=== PATIENT | female | born 1980 | race Caucasian/White ===

== ENCOUNTER 2017-03-26 12:19 | Day surgery (SDC) | payer BC ==
[2017-03-26] MEDS ORDERED: NS 0.9% 1000 ML* 1,000 ML IV ONE ×2 (12:56→14:24)
[2017-03-26] MEDS ORDERED: Ondansetron INJ* 2 MG/ML VIAL IV ONE ×2 (12:56→15:08)
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
[2017-03-26] MEDS ORDERED: Morphine INJ* 4 MG/ML 1 ML SYRINGE IV ONE (13:07)
[2017-03-26 14:02] LABS: Hematocrit 42 % (35-47); Hemoglobin 14.1 g/dl (12.0-16.0); Mean Corpuscular HGB Conc 33 g/dl (31-36); Mean Corpuscular Hemoglobin 31 pg (27-31); Mean Corpuscular Volume 93 fL (80-97); Mean Platelet Volume 7 um3 (7.4-10.4); Red Blood Count 4.56 10^6/ul (4.0-5.4); Red Cell Distribution Width 13 % (10.5-15)
[2017-03-26 14:11] LABS: Add Diff/Slide Review? Slide Review Added; Comments Flag Yes
[2017-03-26] MEDS ORDERED: HYDROmorphone* 1 MG/ML 1 ML SYR IV SLOW PU ONE ×2 (15:00→15:21)
[2017-03-26] MEDS ORDERED: Metoclopramide IV* 5 MG/ML 2 ML VIAL IV ONE (15:21)
[2017-03-26 16:01] LABS: ALT 9 U/L (7-52); AST 14 U/L (13-39); Albumin 3.8 g/dL (3.2-5.2); Alkaline Phosphatase 27 U/L (34-104); Anion Gap 13 mmol/L (2-11); Blood Urea Nitrogen 6 mg/dL (6-24); C Reactive Protein 8.19 mg/L (< 5.00); CO2 Carbon Dioxide 15 mmol/L (22-32); Chloride 104 mmol/L (101-111); EGFR African American 144.7 (>60); EGFR Non-African American 112.5 (>60); Globulin 2.5 g/dL (2-4); Glucose 87 mg/dL (70-100); Lipase < 10 U/L (11.0-82.0); Magnesium 1.5 mg/dL (1.9-2.7); Potassium 3.6 mmol/L (3.5-5.0); Sodium 132 mmol/L (133-145); Total Protein 6.3 g/dL (6.4-8.9)
[2017-03-26] MEDS ORDERED: Iohexol 300* (CONTRAST) 10 ML SDV IV ONE (16:05)
--- NOTE | 2017-03-26 17:05 | RAD ---
CLINICAL HISTORY: Periumbilical pain with nausea and vomiting COMPARISON: None TECHNIQUE: Contrast enhanced CT examination of the abdomen and pelvis from the lung bases through the initial tuberosities. The patient received 68 mL Omnipaque 300 intravenously prior to imaging.The patient received oral contrast as well prior to imaging. FINDINGS: VISUALIZED LUNG BASES: The visualized lung bases are grossly clear. There is no pleural effusion. ABDOMEN AND PELVIS: The liver, spleen, pancreas and adrenal glands are grossly normal in appearance. The gallbladder is normal. The kidneys are normal in appearance without focal mass, calcification or signs of hydronephrosis. There are contrast has progressed as far as the base of the cecum. The small and large bowel are not distended. The appendix is mostly fluid-filled with a small amount of air in the distal tip measuring 11 mm in greatest diameter (coronal image 36 through 43). There is a mild amount of periappendiceal inflammatory change of the mesenteric fat. Questionable wall thickening of the terminal ileum is likely reactive in the presence of an inflamed and enlarged appearing appendix. There is no gross retroperitoneal or mesenteric lymphadenopathy. The pelvic viscera is normal in appearance. The abdominal aorta and iliac arteries are normal in course and diameter. There are no sinister bone lesions. IMPRESSION: In the correct clinical setting these CT findings are most consistent with acute appendicitis.
[2017-03-26 17:20] LABS: Urine Bacteria Absent (Absent); Urine Bilirubin Negative (Negative); Urine Glucose Negative (Negative); Urine Nitrite Negative (Negative)
[2017-03-26] MEDS ORDERED: Ondansetron INJ* 2 MG/ML VIAL ONE (19:12)
[2017-03-26] MEDS ORDERED: Propofol* 10 MG/ML 20 ML BTL IV PUSH ONE (19:12)
[2017-03-26] MEDS ORDERED: Dexamethasone IV* 4 MG/ML 1 ML (4 MG) ONE (19:12)
[2017-03-26] MEDS ORDERED: Lidocaine 2% PF * 5 ML VIAL ONE (19:12)
[2017-03-26] MEDS ORDERED: Ketorolac INJ* 30 MG/ML 1 ML VIAL ONE (19:12)
[2017-03-26] MEDS ORDERED: fentaNYL* 50 MCG/ML 2 ML VIAL (100 MCG VIAL) ONE (19:12)
[2017-03-26] MEDS ORDERED: Cisatracurium* 2 MG/ML MDV 5 ML ONE (19:13)
[2017-03-26] MEDS ORDERED: KETAMINE HCL* 50 MG/ML 10 ML VIAL ONE (19:13)
[2017-03-26] MEDS ORDERED: Midazolam* 1 MG/ML 5 ML VIAL (5 MG) ONE (19:13)
[2017-03-26] MEDS ORDERED: Bupivacaine 0.25% W/EPI* 50 ML VIAL ONE (19:17)
[2017-03-26] MEDS ORDERED: ceFOXitin 2 GM IVPREMIX* 2 GM/50 ML BAG ONE (19:20)
[2017-03-26] MEDS ORDERED: Glycopyrrolate IV* 0.2 MG/ML 1 ML VIAL ONE (20:21)
[2017-03-26] MEDS ORDERED: Neostigmine Methylsulfate* 2 MG/2 ML SYRINGE ONE (20:21)
[2017-03-26] MEDS ORDERED: Ondansetron INJ* 2 MG/ML VIAL IV PRN (20:52)
[2017-03-26] MEDS ORDERED: fentaNYL* 50 MCG/ML 2 ML VIAL (100 MCG VIAL) IV PRN (20:52)
[2017-03-26] MEDS ORDERED: oxyCODONE/Acetamin 5/325 MG* TAB PO PRN (20:52)
[2017-03-26 22:08] VITALS: BP 116/54
[2017-03-26] MEDS ORDERED: oxyCODONE/Acetamin 5/325 MG* TAB ONE (22:10)
--- NOTE | 2017-03-27 03:50 | HP ---
CC: Ino Peng MD HISTORY AND PHYSICAL: DATE OF ADMISSION: 03/26/17 CHIEF COMPLAINT: Abdominal pain. HISTORY OF PRESENT ILLNESS: The patient is a 36-year-old female, who was here in her usual state of health. She had upset stomach yesterday after learning that her dog had and had a lot of dist ress and gastric upset and then today had central abdominal pain, which she thought was somehow foll owon from the stress from 2 days ago, but then it kept getting more intense. This is now a little b it in the right lower quadrant. She has felt warm and feverish. No chills. No nausea. No vomitin g. No diarrhea. No blood in stool or urine. No accident injury or trauma. No antecedent illness. No Crohn's disease, colitis or the like. PAST MEDICAL HISTORY: Benign. No chronic medical illnesses. MEDICATIONS: control pill. ALLERGIES: No medical allergies. FAMILY HISTORY: Benign. No bleeding tendencies or anesthesia reactions. REVIEW OF SYSTEMS: Negative for any cardiac disease, chest pain, heart pain, angina pain. She is v tristen active physically and works out regularly. No dyspnea, bronchitis or emphysema. No hepatobilia ry disease. No renal disease, kidney stones, or urinary symptoms. No GI history. No neuromuscular or psych issues. She has had wisdom teeth out in the past and tolerated that well. No bleeding ten dencies or anesthesia reactions. PHYSICAL EXAMINATION GENERAL: She is a well-developed, well-nourished slender female consistent with stated age. VITAL SIGNS: Noted, temperature was 101.3. Color is good. She does not appear acutely ill. HEENT: Head and neck is unremarkable. There is no adenopathy. LUNGS: Clear bilaterally. HEART: Regular without any abnormal sounds. ABDOMEN: Soft, flat, tender in the right lower quadrant. No rebound tenderness. It is well localiz ed to the right lower quadrant. Bowel sounds are normal and no scars or hernias. EXTREMITIES: Well perfused and without edema. LABORATORY DATA: Reveal white blood count elevated at 21,000 with left shift and relatively normal electrolytes. Renal function is normal. Liver function is normal. HCG is negative. Urinalysis i s negative. CT scan shows a dilated appendix up to 11 mm with little edema in the wall and fluid fi lling the lumen. There is a little periappendiceal inflammatory change. No evidence of free air or abscess or perforation. IMPRESSION: A healthy 36-year-old female with signs and symptoms of early acute appendicitis. I discussed this at length with her and with her . We talked about the pros and cons of appe ndectomy. We talked about the data regarding nonoperative treatment of appendicitis and she would b e a potential candidate for it. She understands it would require being admitted to the hospital for intravenous antibiotics and that there would be a chance of failure of the antibiotics and need for appendectomy, but there is also a reasonable likelihood that she would respond to the antibiotics a nd not end up requiring surgery either. We talked about the pros and cons of these two approaches, the risks, recovery, recurrence rates, return to work and so forth. All of her questions have been answered and she would like to proceed with laparoscopic appendectomy and we will do so this evening when the operating room permits. [id number]/[facility] [place] #: [id number]
--- NOTE | 2017-03-27 16:19 | OP ---
AMENDED REPORT TO CORRECT ACCOUNT NUMBER - ESIGNED BEFORE ADJUSTMENT DATE OF OPERATION: 03/26/17 - SDS DATE OF : 78 SURGEON: Ino Peng MD REAL ESTATE APPRAISER: None. ANESTHESIOLOGIST: Dr. Caldera. ANESTHESIA: General anesthetic, local infiltration. PRE-OP DIAGNOSIS: Acute appendicitis. POST-OP DIAGNOSIS: Acute appendicitis. OPERATIVE PROCEDURE: Laparoscopic appendectomy. DESCRIPTION OF PROCEDURE: The patient was supine on the operative table. After adequate general anesthetic, compression stockings, Paco Hugger warmer, and intravenous antibiotics, the abdomen was prepped with antiseptic, draped in a sterile fashion. Local infiltrative anesthesia was administered. Small umbilical incision was created. Blunt port cannula was placed. Insufflation was carried out with carbon dioxide. Additional cannulae, 5 mm suprapubic and left lower quadrant placed with small stab wounds under direct vision. The right tube and ovary were examined and were normal. Terminal ileum was normal. Cecum was normal. The appendix was inflamed and injected and enlarged and had evidence of acute appendicitis. The cecum was verbalized towards the midline and the base of the appendix was lifted up. A [place] dissector was used to create a window next to the base of the appendix and a prakash load EndoGIA stapler was used to divide the base of the appendix at the cecum. Mesentery was divided with a shannon load of the stapler. The appendix was placed in a retrieval bag and brought out through the umbilical site. There was a small bleeder on the staple line that was cauterized, this was on the mesenteric staple line. Everything was in good condition. The area was swabbed out. Hemostasis was again confirmed. The cannulae were removed, pneumoperitoneum allowed to escape and umbilical fascia was closed with 0 Polysorb and skin with 5-0 Polysorb followed by Ster-Strips. She tolerated the procedure well, was awakened and brought to Recovery in good condition. No complications. No drains. Pathologic specimen is appendix. Sponge, instruments counts correct. Estimated blood loss less than 20 mL. [id number]/[facility] #: [id number] MTDD
== END 2017-03-26 19:11 | disposition short-term general hospital (02) ==
LOC: ED 12:19 → OR 19:11
PROVIDERS: ATTEND Surgery
DX: K35.80 Unspecified acute appendicitis (principal)
CPT/HCPCS: 36415; 74177; 80053; 81003; 81015; 83605; 83690; 83735; 84702; 85025; 86140; 87040; 88304; 96374; 96375; 99285; A9270-GY; C1776; J0694; J1100; J1170; J1885; J2250; J2270; J2405; J2543; J2704; J3010; Q9967

== ENCOUNTER 2019-08-18 13:33 | Emergency (ER) | payer SELFPAY ==
[2019-08-18] MEDS ORDERED: Raltegravir* 400 MG TAB PO ONE (14:00)
[2019-08-18] MEDS ORDERED: Tenofovir/Emtricitab 200/300 * TAB PO ONE (14:00)
[2019-08-18] MEDS ORDERED: Tetan/Diph/Pertus SYR(Tdap)* 0.5 ML SYR(BOOSTRIX) use SYR contains LATEX IM ONE (14:00)
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
[2019-08-18 14:21] LABS: ABS Eosinophils 0.1 10^3/ul (0-0.6); ABS Lymphocytes 2.5 10^3/ul (1.0-4.8); ABS Monocytes 0.4 10^3/ul (0-0.8); ABS Neutrophils 5.9 10^3/ul (1.5-7.7); Eosinophil % 0.8 %; Hematocrit 41 % (35-47); Hemoglobin 14.3 g/dL (12.0-16.0); Mean Corpuscular HGB Conc 35 g/dL (31-36); Mean Corpuscular Hemoglobin 32 pg (27-31); Mean Corpuscular Volume 91 fL (80-97); Mean Platelet Volume 6.6 fL (7.4-10.4); Platelet Count 314 10^3/uL (150-450); Red Blood Count 4.46 10^6 /uL (3.70-4.87); Red Cell Distribution Width 14 % (10-15)
[2019-08-18 14:38] LABS: Albumin 4.7 g/dL (3.2-5.2); Albumin/Globulin Ratio 1.7 (1-3); BUN/Creatinine Ratio 16.9 (8-20); Calcium 9.4 mg/dL (8.6-10.3); EGFR African American 110.9 (>60); EGFR Non-African American 91.6 (>60); Globulin 2.8 g/dL (2-4); Potassium 3.5 mmol/L (3.5-5.0); Total Bilirubin 0.6 mg/dL (0.2-1.0); Total Protein 7.5 g/dL (6.4-8.9)
[2019-08-18 15:02] VITALS: BP 143/97
[2019-08-18 15:16] LABS: Hepatitis B Surface Antigen Nonreactive (Nonreactive)
[2019-08-18 15:33] LABS: Hepatitis B Surface Ab Immune (Immune); Hepatitis C Antibody Negative (Negative)
== END 2019-08-18 14:40 | disposition home or self-care (01) ==
LOC: ED 13:33
DX: Z77.21 Contact with and (suspected) exposure to potentially hazardous body fluids (principal); S61.032A Puncture wound without foreign body of left thumb without damage to nail, initial encounter; W25.XXXA Contact with sharp glass, initial encounter; Y92.89 Other specified places as the place of occurrence of the external cause
CPT/HCPCS: 36415; 80053; 85025; 86706; 86803; 87340; 90471; 90715; 99282

== ENCOUNTER 2019-09-13 17:06 | Emergency (ER) | payer BC ==
--- NOTE | 2019-09-13 17:23 | ED ---
Abdominal Pain/Female - HPI Summary HPI Summary: Patient is a 38 y/o F presenting to the ED for a chief complaint of abdominal pain. Patient describes the abdominal pain as a cramping sensation. She believed she had menstrual cramps on 09/12/19, but she is not currently on her menstrual period. Typically, she does not have menstrual cramps. She also reports abdominal distention. Patient denies fever, nausea, vomiting, changes in bowel movements, hematochezia, hematuria, urinary burning, dysuria, lower back pain, vaginal bleeding, or vaginal discharge. Last bowel movement was 09/12 without problems. She last ate around noon on 09/13/19, after which she began to have the abdominal pain. Lying down worsens the pain. On the morning of 09/13/19, she took Tylenol without relief. Any alleviating factors are denied. PMHx is significant for appendicitis. PSHx is significant for appendectomy. A history of DM, HTN, cholelithaisis, or nephrolithiasis is denied. She denies taking NSAIDs on a regular basis. - History of Current Complaint Chief Complaint: EDAbdPain Stated Complaint: ABD PAIN PER PT Time Seen by Provider: 09/13/19 17:12 Hx Obtained From: Patient Onset/Duration: Sudden Onset, Still Present Timing: Intermittent Episode Lasting Severity Initially: Severe Severity Currently: Severe Pain Intensity: 8 Pain Scale Used: 0-10 Numeric Radiates: No Character: Cramping Aggravating Factor(s): Food, Other: - Lying down Alleviating Factor(s): Nothing Associated Signs and Symptoms: Negative: Fever, Blood in Stool, Nausea, Vomiting Allergies/Adverse Reactions: Allergies Allergy/AdvReac Type Severity Reaction Status Date / Time No Known Allergies Allergy Verified 09/13/19 17:12 PMH/Surg Hx/FS Hx/Imm Hx Previously Healthy: Yes Endocrine/Hematology History: Denies: Hx Anticoagulant Therapy, Hx Blood Disorders, Hx Diabetes, Hx Thyroid Disease, Hx Anemia Cardiovascular History: Denies: Hx Hypertension, Hx Myocardial Infarction GI History: Reports: Other GI Disorders - Appendicitis Denies: Hx Cirrhosis, Hx Crohn's Disease, Hx Diverticulosis, Hx Gall Bladder Disease, Hx Gastroesophageal Reflux Disease, Hx Gastrointestinal Bleed, Hx Hiatal Hernia, Hx Irritable Bowel, Hx Obstructive Bowel, Hx Ulcer History: Denies: Hx Kidney Infection, Hx Kidney Stones Sensory History: Denies: Hx Legally Blind, Hx Deafness Opthamlomology History: Denies: Hx Legally Blind EENT History: Denies: Hx Deafness - Surgical History Surgical History: Yes Surgery Procedure, Year, and Place: Appendectomy Infectious Disease History: No Infectious Disease History: Denies: Traveled Outside the [place] in Last 30 Days - Family History Known Family History: Positive: Diabetes - Social History Occupation: Employed Full-time Lives: With Family Alcohol Use: Occasionally Alcohol Amount: cocktail every other week Hx Substance Use: No Substance Use Type: Reports: None Hx Tobacco Use: No Smoking Status (MU): Never Smoked Tobacco Review of Systems Negative: Fever Positive: Abdominal Pain, Other - Positive abdominal distention; negative changes in bowel movements or hematochezia. Negative: Vomiting, Nausea Negative: burning - Urinary, dysuria, discharge - Vaginal, hematuria, other - Negative vaginal bleeding Negative: Myalgia - Lower back All Other Systems Reviewed And Are Negative: Yes Physical Exam - Summary Physical Exam Summary: Constitutional: Well-developed, Well-nourished, Alert. (-) Distressed Skin: Warm, Dry HENT: Normocephalic; Atraumatic Eyes: Conjunctiva normal Neck: Musculoskeletal ROM normal neck. (-) JVD, (-) Stridor, (-) Tracheal deviation Cardio: Rhythm regular, rate normal, Heart sounds normal; Intact distal pulses; The pedal pulses are 2+ and symmetric. Radial pulses are 2+ and symmetric. (-) Murmur Pulmonary/Chest wall: Effort normal. (-) Respiratory distress, (-) Wheezes, (-) Rales Abd: Soft, (-) Guarding, (-) Rebound. Mild distention, RUQ tenderness. Musculoskeletal: (-) Edema Lymph: (-) Cervical adenopathy Neuro: Alert, Oriented x3 Psych: Mood and affect Normal Triage Information Reviewed: Yes Vital Signs On Initial Exam: Initial Vitals Temp Pulse Resp BP Pulse Ox 97.8 F 62 16 143/83 100 09/13/19 17:07 09/13/19 17:07 09/13/19 17:07 09/13/19 17:07 09/13/19 17:07 Vital Signs Reviewed: Yes Procedures - Sedation Patient Received Moderate/Deep Sedation with Procedure: No Diagnostics - Vital Signs Vital Signs Temp Pulse Resp BP Pulse Ox 09/13/19 17:07 97.8 F 62 16 143/83 100 - Laboratory Result Diagrams: 09/13/19 17:54 09/13/19 17:49 Lab Statement: Any lab studies that have been ordered have been reviewed, and results considered in the medical decision making process. - Radiology Abdomen X-ray Radiology Interpretation Completed By: ED Physician Summary of Radiographic Findings: Abdomen X-ray IMPRESSION: non-specific bowel gas pattern, no dilated bowel loops noted. Reviewed and interpreted by Dr. Bruner, pending official radiology report. - Ultrasound Abdomen US Ultrasound Interpretation Completed By: Radiologist Summary of Ultrasound Findings: Abdomen US IMPRESSION: Normal right upper quadrant ultrasound examination. Reviewed by Dr. Bruner. Abdominal Pain Fem Course/Dx - Course Course Of Treatment: Patient is a 38 y/o F presenting to the ED for a chief complaint of abdominal pain. Patient describes the abdominal pain as a cramping sensation. She believed she had menstrual cramps on 09/12/19, but she is not currently on her menstrual period. Typically, she does not have menstrual cramps. She also reports abdominal distention. Patient denies fever, nausea, vomiting, changes in bowel movements, hematochezia, hematuria, urinary burning, dysuria, lower back pain, vaginal bleeding, or vaginal discharge. Last bowel movement was 09/12/19 without problems. She last ate around noon on 09/13/19, after which she began to have the abdominal pain. Lying down worsens the pain. On the morning of 09/13/19, she took Tylenol without relief. Any alleviating factors are denied. PMHx is significant for appendicitis. PSHx is significant for appendectomy. A history of DM, HTN, cholelithaisis, or nephrolithiasis is denied. She denies taking NSAIDs on a regular basis. On exam, mild distention, RUQ tenderness. In the ED course, patient was given Toradol 30 mg IV PUSH, Zofran 4 mg IV, and IV fluids. Laboratory abnormal findings: MCH 32, MPV 6.8, carbon dioxide 21, glucose 104, alkaline phosphatase 26, urine ketones 1+. Abdomen X-ray IMPRESSION: non-specific bowel gas pattern, no dilated bowel loops noted. Abdomen US IMPRESSION: Normal right upper quadrant ultrasound examination. Patient will be discharged with a diagnosis of abdominal pain. Follow up with PCP in 1-2 days. - Diagnoses Provider Diagnoses: Abdominal pain Discharge ED - Sign-Out/Discharge Documenting (check all that apply): Patient Departure - Discharge - Discharge Plan Condition: Stable Disposition: HOME Patient Education Materials: Abdominal Pain (ED) Referrals: Maggie Arvizu MD [Primary Care Provider] - Additional Instructions: RETURN TO THE EMERGENCY DEPARTMENT FOR CHANGING OR WORSENING SYMPTOMS. Follow up with your primary care physician within 1-2 days. - Attestation Statements Document Initiated by Scribe: Yes Documenting Scribe: Laya Recio Provider For Whom Scribe is Documenting (Include Credential): Benji Bruner DO Scribe Attestation: Laya Melchor scribed for Benji Bruner DO on 09/13/19 at 2018. Status of Scribe Document: Ready
[2019-09-13] MEDS ORDERED: Ketorolac INJ* 30 MG/ML 1 ML VIAL IV PUSH ONE (17:26)
[2019-09-13] MEDS ORDERED: Ondansetron INJ* 2 MG/ML VIAL IV ONE (17:26)
[2019-09-13] MEDS ORDERED: NS 0.9% 1000 ML** 1,000 ML IV ONE (17:26)
[2019-09-13 18:01] LABS: ABS Basophils 0.1 10^3/ul (0-0.2); ABS Eosinophils 0.1 10^3/ul (0-0.6); ABS Lymphocytes 3.5 10^3/ul (1.0-4.8); ABS Monocytes 0.5 10^3/ul (0-0.8); ABS Neutrophils 3.8 10^3/ul (1.5-7.7); Eosinophil % 1.1 %; Hematocrit 38 % (35-47); Hemoglobin 13.3 g/dL (12.0-16.0); Lymphocyte % 44.3 %; Mean Corpuscular HGB Conc 35 g/dL (31-36); Mean Corpuscular Hemoglobin 32 pg (27-31); Mean Corpuscular Volume 92 fL (80-97); Mean Platelet Volume 6.8 fL (7.4-10.4); Platelet Count 287 10^3/uL (150-450); Red Blood Count 4.16 10^6 /uL (3.70-4.87); Red Cell Distribution Width 14 % (10-15)
[2019-09-13 18:21] LABS: ALT 10 U/L (7-52); AST 13 U/L (13-39); Albumin 4.2 g/dL (3.2-5.2); Albumin/Globulin Ratio 1.7 (1-3); Alkaline Phosphatase 26 U/L (34-104); Anion Gap 11 mmol/L (2-11); BUN/Creatinine Ratio 13.8 (8-20); Blood Urea Nitrogen 9 mg/dL (6-24); C Reactive Protein < 1.00 mg/L (<8.01); CO2 Carbon Dioxide 21 mmol/L (22-32); Calcium 8.6 mg/dL (8.6-10.3); Chloride 106 mmol/L (101-111); EGFR African American 122.8 (>60); EGFR Non-African American 101.5 (>60); Globulin 2.5 g/dL (2-4); Glucose 104 mg/dL (70-100); Potassium 3.7 mmol/L (3.5-5.0); Sodium 138 mmol/L (135-145); Total Protein 6.7 g/dL (6.4-8.9)
[2019-09-13 18:26] LABS: HCG Pregnancy < 0.60 mIU/mL
[2019-09-13 19:54] LABS: Urine Appearance Clear; Urine Bilirubin Negative (Negative); Urine Blood Negative (Negative); Urine Color Straw; Urine Glucose Negative (Negative); Urine Ketones 1+ (Negative); Urine Nitrite Negative (Negative); Urine Protein Negative (Negative); Urine Specific Gravity 1.011 (1.010-1.030); Urine Urobilinogen Negative (Negative)
[2019-09-13 20:36] VITALS: BP 119/78
--- NOTE | 2019-09-13 21:20 | CONS ---
CONSULTATION REPORT: DATE OF CONSULT: 09/13/19 - EMERGENCY DEPT SERVICE: General Surgery. ATTENDING SURGEON: Leila Encarnacion MD REASON FOR CONSULT: Abdominal pain. HISTORY OF PRESENT ILLNESS: The patient is a 38-year-old female who presented to the emergency room with complaints of epigastric and periumbilical abdominal pain that seemed to be more right sided. The patient states that she was in her normal state of health until about yesterday afternoon. She had had some Macaroni cheese for lunch and afterwards she started to feel some abdominal discomfort. She had her last normal bowel movement yesterday morning. She does not recall the last times she had flatus. She said that she continued to feel she had intermittent abdominal cramping, but she went to work this morning and was feeling fine until she was about to leave this work this afternoon and she suddenly had severe unremitting epigastric pain. She states that it feels exactly like the pain that she had had when she had appendicitis in the past, which started in the periumbilical area and then radiated to the right lower quadrant. She had an appendectomy about 2 years ago. She denies having any fevers. She has no nausea, no emesis. She has no change in her bowel habits. She has had no blood in her urine. She states that the pain is in the anterior abdominal area, does not radiate to the back. She did not have any recent illnesses. No recent travel. She has never had any peptic ulcer disease. She does not use drugs or consume alcohol. PAST MEDICAL HISTORY: None. PAST SURGICAL HISTORY: Laparoscopic appendectomy. FAMILY HISTORY: Positive for diabetes. SOCIAL HISTORY: Works as a pathologist in the hospital. Note she is nonsmoker. She occasional has alcohol. REVIEW OF SYSTEMS: Negative except for abdominal pain. PHYSICAL EXAM: Vital Signs: Temperature is 97.8, pulse is 68, respiratory rate is 16, O2 sat 100% on room air, blood pressure 119/53. General: This is a well- appearing young woman, lying comfortably in bed, chatting easily, in no apparent distress. HEENT: Normocephalic, atraumatic. Abdomen: Soft, tender in epigastric area, and periumbilical area, also in right lower quadrant, right upper quadrant, and mildly tender in the left upper quadrant. No rebound. No guarding. DIAGNOSTIC STUDIES/LAB DATA: White blood cell count of 8, hemoglobin 13.3, hematocrit is 38, platelets are 287. There is no left shift. Sodium is 138, potassium is 3.7, chloride is 106, CO2 is 21, BUN 9, creatinine 0.65, glucose 104, calcium 8.6. Total bilirubin is 0.3, AST is 13, ALT is 10, alkaline phosphatase is 23, CRP is less than 1, lipase is 17. Beta-HCG is less than 0.6. Imaging: Abdominal ultrasound, final read is pending. The images that I have reviewed, the gallbladder appears nondistended. No stones are evident. No gallbladder wall thickening. No pericholecystic fluid. Formal read is pending. ASSESSMENT AND PLAN: The patient is a healthy 38-year-old female who presented to the emergency room with acute onset of epigastric and more right sided abdominal pain. She is currently feeling well after being administered Toradol. She thus far has not had any significant abnormalities on her laboratory values and her vital signs were normal. Her ultrasound is pending. I have spoken with the patient just that we obtain at least a KUB to ensure that she does not have any dilated loops of small bowel that may be concerning for an ileus or obstruction, although I believe that this is unlikely. It could be that the patient has had a recent gastroenteritis which could explain some of these symptoms. We will await these final studies before making a disposition decision. Addendum: I reviewed her imaging, labs and discussed with patient. Plan is for her to be discharged from the ED and return as needed. We discussed the possibility of a CT scan or upper endoscopy if her symptoms persist. [id number]/[facility] #: [id number] KATHARINE
[2019-09-14] MEDS ORDERED: Iohexol 300* (CONTRAST) 10 ML SDV IV ONE (17:39)
== END 2019-09-13 20:35 | disposition home or self-care (01) ==
LOC: ED 17:06
DX: R10.9 Unspecified abdominal pain (principal)
CPT/HCPCS: 36415; 74018; 76705; 80053; 81003; 83690; 84702; 85025; 86140; 96361; 96374; 96375; 99283; J1885; J2405